=== PATIENT | male | born 1935 | race Hispanic/Latino ===

== ENCOUNTER 2019-05-24 18:32 | Emergency (ER) | payer OTHER, MEDICARE ==
[~2019-05-24 18:32] MED LIST: ASPI-555 PO; DILT360T12 PO; LISI-613 PO; PRAV20TA4 PO
== END 2019-05-24 20:15 | disposition home or self-care (01) ==
LOC: EDH 18:32
DX: N48.1 Balanitis (principal); I10 Essential (primary) hypertension
CPT/HCPCS: 99282

== ENCOUNTER → 2019-12-17 | Outpatient (CLI) | payer OTHER, MEDICARE | END | disposition home or self-care (01) | LOC: SHCH 13:45 | PROVIDERS: ATTEND Internal Medicine Cardiovascular Disease | DX: R07.9 Chest pain, unspecified (principal) | CPT/HCPCS: 93306 ==

== ENCOUNTER → 2019-12-25 | Outpatient (CLI) | payer OTHER, MEDICARE ==
[~2019-12-25] MED LIST changes: +REGADENOSON 0.4 MG/5 ML PF SYG IVP SCH
== END | disposition home or self-care (01) ==
LOC: SHCH 08:28
PROVIDERS: ATTEND Internal Medicine Cardiovascular Disease
DX: R07.9 Chest pain, unspecified (principal)
CPT/HCPCS: 78452; 93017; 96374; A9500 ×2; J2785

== ENCOUNTER 2020-03-06 20:43 | Observation (INO) | payer OTHER, MEDICARE ==
[~2020-03-06] VITALS: Ht 165.1 cm; Wt 67.8 kg
[~2020-03-06 20:43] MED LIST changes: -ASPI-555 PO; +ASPI-556 PO; -REGADENOSON 0.4 MG/5 ML PF SYG IVP SCH
[2020-03-06] MEDS ORDERED: ASPIRIN 325 MG TABLET ONE (20:59)
[2020-03-06] MEDS ORDERED: NITROGLYCERIN 1GM/1 INCH PACKET TD ONE (20:59)
[2020-03-06 21:06] LABS: BASOPHILS % (AUTO) 0.7 % (0.0-5.0); EOSINOPHILS % (AUTO) 4.4 % (0.0-8.0); HEMATOCRIT 33.1 % (42-54); LYMPHOCYTES % (AUTO) 42.9 % (21.0-51.0); MEAN CORPUSCULAR HEMOGLOBIN 32.3 pg (27.0-33.0); MEAN CORPUSCULAR HGB CONC 34.1 g/dL (32.0-36.0); MEAN CORPUSCULAR VOLUME 94.6 fL (79-99); MONOCYTES % (AUTO) 13.1 % (3.0-13.0); NEUTROPHILS % (AUTO) 38.9 % (40.0-77.0); PLATELET COUNT (AUTO) 139 K/uL (130-400); RED CELL DISTRIBUTION WIDTH 13.1 % (11.0-15.5); WHITE BLOOD COUNT (AUTO) 4.4 K/uL (4.8-10.8)
[2020-03-06 21:27] LABS: INR 0.98 (0.85-1.15); PARTIAL THROMBOPLASTIN TIME 26.1 SEC (26.3-35.5); PROTHROMBIN TIME 10.6 SEC (9.6-11.6)
[2020-03-06 21:33] LABS: CREATININE 1.1 mg/dL (0.5-1.5); POTASSIUM 3.6 mmol/L (3.5-5.1)
[2020-03-06 21:37] LABS: ALBUMIN 3.9 g/dL (3.5-5.0); BILIRUBIN,TOTAL 0.3 mg/dL (0.2-1.0); TOTAL PROTEIN, SERUM 7.6 g/dL (6.0-8.3)
[2020-03-07] VITALS (7 sets, daily range): BP systolic 139–188; BP diastolic 52–77
[2020-03-07] MEDS ORDERED: HYDRALAZINE HCL 20 MG/ML VIAL ONE (01:23)
[2020-03-07] MEDS ORDERED: HYDRALAZINE HCL 20 MG/ML VIAL IV PRN (01:30)
[2020-03-07] MEDS ORDERED: ACETAMINOPHEN 325 MG TAB PO PRN (01:30)
[2020-03-07] MEDS ORDERED: MORPHINE SULFATE 2 MG/ML 1ML SYG IVP PRN (01:30)
[2020-03-07] MEDS ORDERED: ENOXAPARIN SODIUM 60 MG/0.6 ML SQ SCH (02:00)
[2020-03-07] MEDS ORDERED: ENOXAPARIN SODIUM 60 MG/0.6 ML SQ ONE (02:07)
[2020-03-07] MEDS ORDERED: FAMOTIDINE 20MG TAB 20 MG TAB ONE (02:07)
[2020-03-07] MEDS ORDERED: LISI40TA4 PO (03:45)
[2020-03-07] MEDS ORDERED: NITR0.4T50 SL (03:45)
[2020-03-07] MEDS ORDERED: ISOS30TA6 PO (03:45)
[2020-03-07] MEDS ORDERED: MECL-183 PO (03:45)
[2020-03-07] MEDS ORDERED: NITROGLYCERIN 1GM/1 INCH PACKET TD SCH ×2 (06:00→06:30)
[2020-03-07 06:08] LABS: APPEARANCE,URINE Clear (CLEAR); BILIRUBIN,URINE Negative (NEGATIVE); COLOR,URINE Yellow (YELLOW); GLUCOSE, URINE (UA) Negative (NEGATIVE); KETONES,URINE Negative (NEGATIVE); LEUKOCYTE ESTERASE ,URINE Negative (NEGATIVE); NITRATE,URINE Negative (NEGATIVE); OCCULT BLOOD,URINE Negative (NEGATIVE); PH,URINE 6.5 (5.0-8.0); PROTEIN,URINE Negative (NEGATIVE); UROBILINOGEN,URINE 0.2 mg/dL (0.2-1.0)
[2020-03-07 06:52] LABS: BASOPHILS % (AUTO) 0.6 % (0.0-5.0); EOSINOPHILS % (AUTO) 3.4 % (0.0-8.0); HEMATOCRIT 31.3 % (42-54); LYMPHOCYTES % (AUTO) 27.3 % (21.0-51.0); MEAN CORPUSCULAR HEMOGLOBIN 32.4 pg (27.0-33.0); MEAN CORPUSCULAR HGB CONC 34.2 g/dL (32.0-36.0); MEAN CORPUSCULAR VOLUME 94.8 fL (79-99); MONOCYTES % (AUTO) 10.2 % (3.0-13.0); NEUTROPHILS % (AUTO) 58.3 % (40.0-77.0); PLATELET COUNT (AUTO) 124 K/uL (130-400); RED CELL DISTRIBUTION WIDTH 12.9 % (11.0-15.5)
[2020-03-07 08:53] LABS: CREATININE 0.9 mg/dL (0.5-1.5)
[2020-03-07] MEDS ORDERED: ISOSORBIDE MONO 30MG TAB SR PO SCH ×2 (09:00→13:00)
[2020-03-07] MEDS: ASPIRIN 81 MG EC TAB PO SCH (09:37)
[2020-03-07] MEDS: FAMOTIDINE 20MG TAB 20 MG TAB PO SCH (09:37)
[2020-03-07] MEDS: METOPROLOL TARTRATE 25 MG TAB PO SCH ×2 (09:37→20:24)
[2020-03-07] MEDS: ENOXAPARIN SODIUM 60 MG/0.6 ML SQ SCH ×2 (09:38→20:25)
[2020-03-07] MEDS: LISINOPRIL 40 MG TABLET PO SCH (11:43)
[2020-03-07] MEDS ORDERED: CLOPIDOGREL BISULFATE 300 MG TAB PO SCH (13:00)
--- NOTE | 2020-03-07 16:50 | NUR ---
TAMY PLAN VISITED WITH PATIENT. PATIENT ON RA WALKING AROUND. BP 188/70 SENT FOR SECONDARY REVIEW. TRIED TO DO IA WITH PATIENT. APPEARED TO BE HARD OF HEARING. CM WILL CONTINUE TO FOLLOW. Addendum: 03/07/20 at 1652 by ELDER OSUNA RN CM Amended: Links added.
[2020-03-07] MEDS ORDERED: ATORVASTATIN CALCIUM 40 MG TABLET PO SCH (21:00)
--- NOTE | 2020-03-07 22:46 | NUR ---
MD Notified Patient trop are elevated & IV that was removed by patient in the right hand is swollen. The MD has been notified (Arlin Lane). She told me that I did not need to notify Cardiology about the troponins if the patient was asymptomatic. A heat pack has been applied to the patient hand and it is elevated as well. An order for a sitter has been placed as well due to his confusion
[2020-03-08 03:50] VITALS: BP 161/77
[2020-03-08] MEDS ORDERED: METO-391 PO (06:21)
[2020-03-08] MEDS ORDERED: Isosorbide Mono 30MG Tab Sr PO (06:21)
[2020-03-08] MEDS ORDERED: ATOR40TA69 PO (06:21)
[2020-03-08] MEDS ORDERED: CLOP75TA14 PO (06:21)
[2020-03-08 08:00] VITALS: BP 170/78
[2020-03-08] MEDS: ASPIRIN 81 MG EC TAB PO SCH (08:38)
[2020-03-08] MEDS: FAMOTIDINE 20MG TAB 20 MG TAB PO SCH (08:39)
[2020-03-08] MEDS ORDERED: ISOSORBIDE MONO 30MG TAB SR PO SCH (09:00)
[2020-03-08] MEDS ORDERED: ENOXAPARIN SODIUM 40 MG/0.4 ML SYRINGE SQ SCH (09:00)
[2020-03-08] MEDS ORDERED: METOPROLOL SUCCINATE 50 MG TAB.SR.24H PO SCH (09:00)
[2020-03-08] MEDS ORDERED: CLOPIDOGREL BISULFATE 75 MG TAB PO SCH (09:00)
[2020-03-08 12:00] VITALS: BP 147/68
[2020-03-08] MEDS: LISINOPRIL 40 MG TABLET PO SCH (12:00)
--- NOTE | 2020-03-08 12:54 | NUR ---
DC PLAN VISITED WITH PATIENT. SEEMED TO BE A LITTLE CONFUSED YESTERDAY. TODAY ON 1:1. CALLED SPOUSE NO ANSWER. CALLED DAUGHTER HARJEET MANCUSO. SAID PATIENT LIVES WITH SPOUSE. HARD OF HEARING DOES NOT WEAR HIS HEARING AIDS. SPEAKS FIL[place] ONLY AND HAS ALZEHEIMERS. PROVIDER 17 HOURS. READY TO SPECIAL SERVICE OFFICER DAD ONCE RDY. Addendum: 03/08/20 at 1301 by ELDER OSUNA RN CM Amended: Links added.
--- NOTE | 2020-03-08 15:00 | NUR ---
PT DAUGHTER HARJEET GIVEN INSTRUCTIONS ON NEW PRESCRIPTIONS, AND SIGNS AND SYMPTOMS TO REPORT.
== END 2020-03-08 15:30 | disposition home or self-care (01) ==
LOC: EDH 20:43 → EDHIP 03-07 00:30 → INTOOBSV 03-07 00:30 → DAHIP 03-07 03:30 → OBSVTOIN 03-07 09:08 → INTOOBSV 03-07 09:08
PROVIDERS: ADMIT Internal Medicine Critical Care Medicine; ATTEND Internal Medicine Critical Care Medicine
DX: I25.110 Atherosclerotic heart disease of native coronary artery with unstable angina pectoris (principal); I24.9 Acute ischemic heart disease, unspecified; I10 Essential (primary) hypertension; I16.0 Hypertensive urgency; E78.5 Hyperlipidemia, unspecified; H91.90 Unspecified hearing loss, unspecified ear; Z79.02 Long term (current) use of antithrombotics/antiplatelets; Z79.82 Long term (current) use of aspirin; Z79.899 Other long term (current) drug therapy; Z85.46 Personal history of malignant neoplasm of prostate
CPT/HCPCS: 36415 ×2; 71045; 80048; 80053; 81003; 82550; 83880; 84484 ×4; 85025 ×2; 85610; 85730; 93005 ×2; 96372 ×2; 99285; G0378 ×25; J0360 ×2; J1650 ×4

== ENCOUNTER 2020-04-06 06:17 | Inpatient (IN) | payer OTHER, MEDICARE ==
[2020-04-05 15:43] LABS: BASOPHILS % (AUTO) 0.6 % (0.0-5.0); EOSINOPHILS % (AUTO) 5.5 % (0.0-8.0); HEMATOCRIT 30.7 % (42-54); LYMPHOCYTES % (AUTO) 35.2 % (21.0-51.0); MEAN CORPUSCULAR HEMOGLOBIN 32.3 pg (27.0-33.0); MEAN CORPUSCULAR HGB CONC 32.9 g/dL (32.0-36.0); MEAN CORPUSCULAR VOLUME 98.1 fL (79-99); MONOCYTES % (AUTO) 11.4 % (3.0-13.0); NEUTROPHILS % (AUTO) 47.1 % (40.0-77.0); PLATELET COUNT (AUTO) 139 K/uL (130-400); RED BLOOD CELL COUNT(AUTO) 3.13 MIL/uL (4.50-6.20); RED CELL DISTRIBUTION WIDTH 13.4 % (11.0-15.5); WHITE BLOOD COUNT (AUTO) 4.7 K/uL (4.8-10.8)
[2020-04-05 15:53] VITALS: BP 190/64
[2020-04-05 15:53] LABS: POTASSIUM 4.5 mmol/L (3.5-5.1)
[2020-04-05 16:06] LABS: INR 0.99 (0.85-1.15); PARTIAL THROMBOPLASTIN TIME 25.6 SEC (26.3-35.5); PROTHROMBIN TIME 10.7 SEC (9.6-11.6)
--- NOTE | 2020-04-05 16:24 | NUR ---
Abnormal CBC Spoke to RAS Nicole/Dr. Peter, and made him aware of CBC results. Order received to repeat CBC in AM. Chart noted.
[2020-04-05 16:39] LABS: APPEARANCE,URINE Clear (CLEAR); BILIRUBIN,URINE Negative (NEGATIVE); COLOR,URINE Yellow (YELLOW); GLUCOSE, URINE (UA) Negative (NEGATIVE); KETONES,URINE Negative (NEGATIVE); LEUKOCYTE ESTERASE ,URINE Negative (NEGATIVE); NITRATE,URINE Negative (NEGATIVE); OCCULT BLOOD,URINE Negative (NEGATIVE); PROTEIN,URINE Negative (NEGATIVE); UROBILINOGEN,URINE 0.2 mg/dL (0.2-1.0)
[2020-04-06] VITALS (22 sets, daily range): BP systolic 105–198; BP diastolic 55–109
[~2020-04-06] VITALS: Ht 167.6 cm; Wt 71.5 kg
[~2020-04-06 06:17] MED LIST changes: +ATOR40TA69 PO; -DILT360T12 PO; +Isosorbide Mono 30MG Tab Sr PO; -LISI-613 PO; +LISI40TA4 PO; +METO-391 PO; +NITR0.4T50 SL; -PRAV20TA4 PO
[2020-04-06] MEDS ORDERED: SODIUM CHLORIDE 0.9% 1000ML 1,000 ML IV ONE (06:20)
--- NOTE | 2020-04-06 06:25 | NUR ---
preop pt arrived via w/c. daughter at side. pt in no distress at this time. pt and family oriented to call light and room.
[2020-04-06 06:33] LABS: BASOPHILS % (AUTO) 0.4 % (0.0-5.0); EOSINOPHILS % (AUTO) 5.9 % (0.0-8.0); HEMATOCRIT 30.7 % (42-54); LYMPHOCYTES % (AUTO) 35.8 % (21.0-51.0); MEAN CORPUSCULAR HEMOGLOBIN 32.3 pg (27.0-33.0); MEAN CORPUSCULAR HGB CONC 33.2 g/dL (32.0-36.0); MEAN CORPUSCULAR VOLUME 97.2 fL (79-99); MONOCYTES % (AUTO) 10.9 % (3.0-13.0); NEUTROPHILS % (AUTO) 46.8 % (40.0-77.0); PLATELET COUNT (AUTO) 130 K/uL (130-400); RED BLOOD CELL COUNT(AUTO) 3.16 MIL/uL (4.50-6.20); RED CELL DISTRIBUTION WIDTH 13.2 % (11.0-15.5); WHITE BLOOD COUNT (AUTO) 4.6 K/uL (4.8-10.8)
[2020-04-06] MEDS ORDERED: IOHEXOL-350 50ML VIAL IV ONE (07:20)
[2020-04-06] MEDS ORDERED: IOHEXOL 350 MG/ML 100ML INFUS..BTL IV ONE (07:20)
[2020-04-06] MEDS ORDERED: HEPARIN SODIUM 1000UNIT/ML 10ML VIAL ONE ×2 (07:20→11:02)
[2020-04-06] MEDS ORDERED: LIDOCAINE HCL 2% 20ML ONE (07:20)
--- NOTE | 2020-04-06 07:25 | NUR ---
report called dr myers and reported cbc. no new orders received
--- NOTE | 2020-04-06 07:52 | NUR ---
cath pt taken to cardiac catheterization technician via bed in no distress.
[2020-04-06] MEDS ORDERED: PRAV20TA4 PO (08:02)
[2020-04-06] MEDS ORDERED: SIME80TA12 PO (08:02)
[2020-04-06] MEDS ORDERED: DONE5TAB33 PO (08:02)
[2020-04-06] MEDS ORDERED: CARV3.12 PO (08:02)
[2020-04-06] MEDS ORDERED: MEMA5TAB42 PO (08:02)
[2020-04-06] MEDS ORDERED: SUCR1TAB2 PO (08:02)
[2020-04-06] MEDS ORDERED: MIDAZOLAM HCL 1 MG/ML 2ML VIAL ONE ×2 (08:36→11:03)
[2020-04-06] MEDS ORDERED: MEPERIDINE-PF 25 MG/ML SYG ONE (08:36)
[2020-04-06] MEDS ORDERED: HEPARIN 25000 UNITS/250 ML D5W 250 ML IV ONE (08:58)
--- NOTE | 2020-04-06 09:40 | NUR ---
PT WAS ADMITTED TO ROOM 1D IN DAY PATIENT ICU AREA. PT IS A 83 Y O MALE POST CATH. PT HAS IMPELLA TO LEFT GROIN IN PLACE AND PT IS BEING PREPARED TO HAVE SURGERY CONSULT AND WILL BE GOING TO SURGERY IF DAUGHTER AND FAMILY MEMBERS DECIDE TO PROCEED WITH SURGERY RECOMMENDED PER DR. BASURTO.
[2020-04-06] MEDS ORDERED: EPINEPHRINE 10 MG in SODIUM CHLORIDE 0.9% 240 ML IV PRN ×2 (10:00→14:15)
[2020-04-06] MEDS ORDERED: AMINOCAPROIC ACID 15,000 MG in SODIUM CHLORIDE 0.9% 500ML 420 ML IV PRN (10:00)
[2020-04-06] MEDS ORDERED: NOREPINEPHRINE BITARTRATE 8 MG in DEXTROSE 5%-WATER 250 ML IV PRN ×2 (10:00→14:15)
[2020-04-06] MEDS ORDERED: NITROGLYCERIN 1GM/1 INCH PACKET TD ONE (10:02)
[2020-04-06] MEDS ORDERED: NOREPINEPHRINE BITARTRATE 8 MG in SODIUM CHLORIDE 0.9% 250 ML IV PRN (10:15)
[2020-04-06 10:28] LABS: HEMATOCRIT 27.5 % (42-54); MEAN CORPUSCULAR HEMOGLOBIN 32.9 pg (27.0-33.0); MEAN CORPUSCULAR HGB CONC 34.2 g/dL (32.0-36.0); MEAN CORPUSCULAR VOLUME 96.2 fL (79-99); RED BLOOD CELL COUNT(AUTO) 2.86 MIL/uL (4.50-6.20); RED CELL DISTRIBUTION WIDTH 13.2 % (11.0-15.5); WHITE BLOOD COUNT (AUTO) 3.9 K/uL (4.8-10.8)
[2020-04-06 10:34] LABS: ABG BASE EXCESS -3.3 mmol/L (-2.0-3.0); ABG HCO3 19.8 mmol/L (21.0-28.0); ABG OXYGEN SATURATION 96.1 % (95.0-99.0); ABG PCO2 31 mmHg (35-48)
[2020-04-06 10:37] LABS: HEMOGLOBIN A1C 6.5 % (4.0-6.0); POTASSIUM 4.1 mmol/L (3.5-5.1)
[2020-04-06 10:41] LABS: ALBUMIN 3.3 g/dL (3.5-5.0); BILIRUBIN,TOTAL 0.4 mg/dL (0.2-1.0); TOTAL PROTEIN, SERUM 6.3 g/dL (6.0-8.3)
[2020-04-06] MEDS ORDERED: SODIUM BICARB 50MEQ 50ML VIAL ONE ×3 (10:41→14:39)
[2020-04-06 10:47] LABS: INR 1.12 (0.85-1.15)
[2020-04-06] MEDS ORDERED: LIDOCAINE PF 2% 5ML ABBOJECT ONE (11:02)
[2020-04-06] MEDS ORDERED: PROTAMINE SULFATE 10 MG/ML 25ML VIAL IV ONE (11:02)
[2020-04-06] MEDS ORDERED: AMINOCAPROIC ACID 250 MG/ML 20 ML VIAL IV ONE (11:02)
[2020-04-06] MEDS ORDERED: ESMOLOL HCL 10 MG/ML 10 ML VIAL ONE (11:02)
[2020-04-06] MEDS ORDERED: NOREPINEPHRINE BITARTRATE 1 MG/1 ML ML IV ONE (11:02)
[2020-04-06] MEDS ORDERED: EPINEPHRINE 1 MG/ML AMPULE ONE (11:02)
[2020-04-06] MEDS ORDERED: FENTANYL CITRATE PF 50 MCG/1 ML 20ML VIAL IJ ONE (11:03)
[2020-04-06] MEDS ORDERED: PROPOFOL 10 MG/ML 20ML VIAL IV ONE (11:03)
[2020-04-06] MEDS ORDERED: KETAMINE 50MG/ML SYRINGE 50 MG/ML DISP.SYRIN IV ONE (11:04)
[2020-04-06] MEDS ORDERED: ROCURONIUM 10MG/1ML SYR 10 MG/ML ML ONE (11:04)
--- NOTE | 2020-04-06 11:20 | NUR ---
PT WAS TAKEN TO SURGERY AFTER DAUGHTER AND SON DECIDED FOR PATIENT TO HAVE SURGERY DR. VELEZ HERE AND SPOKE TO DAUGHTER CONCERNING THE SURGERY PROCEDURE, DAUGHTER VERBALIZED UNDERSTANDING AND WAS ABLE TO ASK QUESTIONS AND DR. VELEZ ANSWERED HER QUESTIONS.
[2020-04-06] MEDS ORDERED: CEFAZOLIN SODIUM 1 GM VIAL ONE ×3 (11:29)
[2020-04-06] MEDS ORDERED: PAPAVERINE HCL 30 MG/ML 2ML VIAL ONE (11:29)
[2020-04-06] MEDS ORDERED: MAGNESIUM SULFATE 1 GM/2 ML VIAL ONE (12:00)
[2020-04-06] MEDS ORDERED: NITROGLYCERIN 50 MG/D5% WATER 1 BOT ONE (12:05)
[2020-04-06 12:07] LABS: ABG BASE EXCESS -0.2 mmol/L (-2.0-3.0); ABG HCO3 22.5 mmol/L (21.0-28.0); ABG OXYGEN SATURATION 98.6 % (95.0-99.0); ABG PCO2 30 mmHg (35-48)
[2020-04-06] MEDS ORDERED: NICARDIPINE IN NACL, ISO-OSM 200 ML IV PRN (12:15)
[2020-04-06] MEDS ORDERED: NICARDIPINE 100 MG/100ML IV SCH ×2 (12:45)
[2020-04-06 12:51] LABS: PARTIAL THROMBOPLASTIN TIME > 120.0 SEC (26.3-35.5)
[2020-04-06 13:28] LABS: ABG BASE EXCESS 0.4 mmol/L (-2.0-3.0); ABG HCO3 24.1 mmol/L (21.0-28.0); ABG OXYGEN SATURATION 98.2 % (95.0-99.0); ABG PCO2 35 mmHg (35-48)
[2020-04-06] MEDS ORDERED: NOREPINEPHRINE 4MG/NS 250ML 250 ML IV PRN (13:45)
[2020-04-06] MEDS ORDERED: EPINEPHRINE 10 MG in DEXTROSE 5%-WATER 250 ML IV PRN (13:45)
[2020-04-06] MEDS ORDERED: INSULIN REGULAR, HUMAN 3ML 100 UNIT in SODIUM CHLORIDE 0.9% 99 ML IV SCH ×2 (13:45)
[2020-04-06] MEDS ORDERED: AMINOCAPROIC ACID 15,000 MG in SODIUM CHLORIDE 0.9% 250 ML IV SCH (13:45)
[2020-04-06] MEDS ORDERED: MAGNESIUM 2GM PREMIX 50ML 50 ML IV PRN (13:45)
[2020-04-06] MEDS ORDERED: ALBUMIN (HUMAN) 5% 250 ML IV PRN (13:45)
[2020-04-06] MEDS ORDERED: SODIUM CHLORIDE 0.9% 10 ML VIAL IVP PRN (13:45)
[2020-04-06] MEDS ORDERED: ACETAMINOPHEN 650 MG SUPPOSITORY RC PRN (13:45)
[2020-04-06] MEDS ORDERED: MORPHINE SULFATE 2 MG/ML 1ML SYG IV PRN (13:45)
[2020-04-06] MEDS ORDERED: SODIUM CHLORIDE 0.9% 250 ML IV PRN (13:45)
[2020-04-06] MEDS ORDERED: MORPHINE SULFATE 4 MG/1ML SYG IV PRN (13:45)
[2020-04-06] MEDS ORDERED: TRAMADOL HCL 50 MG TABLET PO PRN ×2 (13:45)
[2020-04-06] MEDS ORDERED: NITROGLYCERIN 50 MG/D5% WATER 250 BOT IV SCH (13:45)
[2020-04-06] MEDS ORDERED: ONDANSETRON HCL 4 MG/2 ML VIAL IV PRN (13:45)
[2020-04-06] MEDS ORDERED: GLUCAGON 1MG KIT 1 MG ML IM PRN (13:45)
[2020-04-06] MEDS ORDERED: DEXTROSE 50%-WATER 50 ML DISP.SYRIN IV PRN (13:45)
[2020-04-06] MEDS ORDERED: SODIUM CHLORIDE 0.9% 1000ML 1,000 ML IV SCH (13:45)
[2020-04-06] MEDS ORDERED: POTASSIUM PHOS 15 mMOL+NS250ML 250 ML IV PRN (13:45)
[2020-04-06 14:33] LABS: ABG BASE EXCESS -7.2 mmol/L (-2.0-3.0); ABG HCO3 18.9 mmol/L (21.0-28.0); ABG OXYGEN SATURATION 98.5 % (95.0-99.0); ABG PCO2 41 mmHg (35-48)
[2020-04-06 14:57] LABS: ABG BASE EXCESS 2.4 mmol/L (-2.0-3.0); ABG HCO3 26.5 mmol/L (21.0-28.0); ABG OXYGEN SATURATION 98.2 % (95.0-99.0); ABG PCO2 39 mmHg (35-48)
[2020-04-06] MEDS ORDERED: FENTANYL CITRATE PF 50 MCG/1 ML 2ML VIAL ONE ×2 (15:07)
[2020-04-06 15:43] LABS: ABG OXYGEN SATURATION 64.8 % (95.0-99.0); BASE EXCESS,VENOUS BLOOD GAS -2.6 (-2.0-3.0); HCO3,VENOUS BLOOD GAS 23.9 (21.0-28.0); PCO2,VENOUS BLOOD GAS 48 (35-48); PH,VENOUS BLOOD GAS 7.319 (7.350-7.450)
[2020-04-06 16:03] LABS: ABG BASE EXCESS -2.8 mmol/L (-2.0-3.0); ABG HCO3 21.7 mmol/L (21.0-28.0); ABG OXYGEN SATURATION 98.4 % (95.0-99.0); ABG PCO2 37 mmHg (35-48)
[2020-04-06] MEDS ORDERED: HEPARIN SODIUM 1000UNIT/ML 10ML VIAL IV ONE (16:04)
[2020-04-06 16:15] LABS: MEAN CORPUSCULAR HGB CONC 34.8 g/dL (32.0-36.0); MEAN CORPUSCULAR VOLUME 89.1 fL (79-99); RED BLOOD CELL COUNT(AUTO) 3.48 MIL/uL (4.50-6.20); RED CELL DISTRIBUTION WIDTH 16.5 % (11.0-15.5); WHITE BLOOD COUNT (AUTO) 10.8 K/uL (4.8-10.8)
[2020-04-06] MEDS ORDERED: DEXTROSE 5% IJ PRN (16:15)
[2020-04-06] MEDS ORDERED: HEPARIN IJ PRN (16:15)
[2020-04-06] MEDS ORDERED: SODIUM CHLORIDE IV SCH (16:15)
[2020-04-06] MEDS ORDERED: WATER IJ PRN (16:15)
[2020-04-06] MEDS ORDERED: NS IV SCH (16:15)
[2020-04-06 16:28] LABS: INR 1.38 (0.85-1.15); PARTIAL THROMBOPLASTIN TIME 26.1 SEC (26.3-35.5); PROTHROMBIN TIME 14.7 SEC (9.6-11.6)
[2020-04-06 16:32] LABS: MAGNESIUM 1.8 mg/dL (1.80-2.40); PHOSPHORUS 6.2 mg/dL (2.5-4.9)
[2020-04-06] MEDS: PROPOFOL 1000 MG/100 ML 100 ML IV PRN (16:58)
[2020-04-06 17:01] LABS: ABG BASE EXCESS 2.1 mmol/L (-2.0-3.0); ABG OXYGEN SATURATION 97.9 % (95.0-99.0); ABG PCO2 38 mmHg (35-48)
[2020-04-06 17:25] LABS: CREATININE 1.2 mg/dL (0.5-1.5); POTASSIUM 4.1 mmol/L (3.5-5.1)
[2020-04-06] MEDS: POTASSIUM CHLORIDE 20MEQ/100ML 100 ML IV PRN ×2 (17:26→20:33)
--- NOTE | 2020-04-06 17:49 | NUR ---
PT HAD TO BE STARTED ON DIPRIVAN DRIP -HE BEGAN TO WAKE UP AND MARCIAL VENTILATOR. SEDATED FOR COMFORT HE IS NOT GOING TO BE EXTUBATED TONIGHT. SWAN DANNY CATH HAS INCONSISTENT WAVEFORMS AT TIMES ( HIGH/LOW READINGS). CO MONITOR IS GIVING LOW READINGS AND PA PRESSURES COME AND GO. DAMPENED AT TIMES OR WHIPPED. I HAVE CONNECTED ET CO MONITOR AND IT IS GIVING APPROPRIATE CARDIAC OUTPUTS OF 4.5. I WILL FOLLOW ET CARDIAC OUTPUT MONITOR FOR NOW.
--- NOTE | 2020-04-06 18:01 | NUR ---
PT ARRIVES FROM O.R.- CARE ASSUMED FROM SURGICAL STAFF. PT IS INTUBATED. EPINEPHRINE DRIP AT 0.1MCG/KG/MIN... SBP 190 ,HR 80. SEDATED. IMPELLA DEVICE ON P-6 SETTING. NO HEMATOMA OR BLEEDING NOTED TO LEFT GROIN SHEATH/IMPELLA SITE. STRONG PEDAL PULSES Addendum: 04/06/20 at 1822 by NIVIA ANDREWS RN RN CORRECT TIME FOR THIS NOTE IS 3172
[2020-04-06 18:24] LABS: ABG HCO3 22.9 mmol/L (21.0-28.0); ABG OXYGEN SATURATION 97.3 % (95.0-99.0); ABG PCO2 35 mmHg (35-48)
[2020-04-06] MEDS: CEFAZOLIN SODIUM 1 GM VIAL IV SCH (19:21)
[2020-04-06 19:47] LABS: ABG BASE EXCESS -1.3 mmol/L (-2.0-3.0); ABG HCO3 22.3 mmol/L (21.0-28.0); ABG OXYGEN SATURATION 97.1 % (95.0-99.0); ABG PCO2 34 mmHg (35-48)
[2020-04-06] MEDS: SODIUM BICARB 50MEQ 50ML VIAL IV PRN (19:51)
--- NOTE | 2020-04-06 20:10 | NUR ---
DR VELEZ ARRIVES AT BEDSIDE- HE ADJUSTED POSITION OF IMPELLA CATH TO 100CM / ALSO ADJUSTED SWAN POSITION TO 50CM. UPDATED ON PT STATUS . INFORMED OF COLD LEFT FOOT WITH ABSENT DOPPLER PULSES. HE WILL CHANGE CONCENTRATION OF HEPARIN TO IMPELLA PURGE SOLUTION
[2020-04-06] MEDS ORDERED: PHARMACY COMMUNICATION MISC SCH (20:15)
[2020-04-06 20:30] LABS: ABG BASE EXCESS 3.9 mmol/L (-2.0-3.0); ABG HCO3 27.3 mmol/L (21.0-28.0); ABG OXYGEN SATURATION 97.7 % (95.0-99.0); ABG PCO2 37 mmHg (35-48)
[2020-04-06] MEDS ORDERED: HEPARIN SODIUM 5000 UNIT/ML 25,000 UNIT in DEXTROSE 5%-WATER 495 ML IJ PRN (20:30)
--- NOTE | 2020-04-06 20:46 | NUR ---
HAND OFF GIVEN TO VILMA DAUGHERTY AND SHANKAR DAUGHERTY
[2020-04-06] MEDS: ATORVASTATIN CALCIUM 20 MG TABLET PO SCH (21:00)
[2020-04-06] MEDS: CALCIUM GLUCONATE 1 GM in SODIUM CHLORIDE 0.9% 50 ML IV PRN (21:14)
[2020-04-06] MEDS: FAMOTIDINE/PF 20 MG/2 ML VIAL IV SCH (21:32)
[2020-04-06] MEDS ORDERED: ALBUMIN (HUMAN) 5% 250 ML IV ONE (21:41)
[2020-04-06 21:49] LABS: ABG BASE EXCESS 3.3 mmol/L (-2.0-3.0); ABG HCO3 26.4 mmol/L (21.0-28.0); ABG OXYGEN SATURATION 97.4 % (95.0-99.0); ABG PCO2 35 mmHg (35-48)
[2020-04-06 21:53] LABS: ABG OXYGEN SATURATION 43.3 % (95.0-99.0); BASE EXCESS,VENOUS BLOOD GAS 2.6 (-2.0-3.0); HCO3,VENOUS BLOOD GAS 27.8 (21.0-28.0); PCO2,VENOUS BLOOD GAS 45 (35-48); PH,VENOUS BLOOD GAS 7.408 (7.350-7.450)
--- NOTE | 2020-04-06 22:30 | NUR ---
DR. VELEZ CALLED AND UPDATED IN PT CONDITION. LAST SVO2 AND DECREASED CO/CI ACCORDING TO SWAN/ETT MONITORING. NOTIFIED OF ABG RESULT AND URINE OUTPUT. NEW ORDERS RECEIVED AND NOTED. CONTINUE TO MONITOR PT.
[2020-04-06 23:11] LABS: FIBRINOGEN 189 mg/dL (180-350); INR 1.24 (0.85-1.15); PARTIAL THROMBOPLASTIN TIME 32.4 SEC (26.3-35.5); PROTHROMBIN TIME 13.3 SEC (9.6-11.6)
[2020-04-06] MEDS: ACETAMINOPHEN 325 MG TAB PO PRN (23:12)
[2020-04-06] MEDS: ALBUMIN (HUMAN) 5% 250 ML IV SCH (23:18)
[2020-04-06 23:36] LABS: D-DIMER 1192 ng/mL (0-500)
[2020-04-07] VITALS (30 sets, daily range): BP systolic 33–179; BP diastolic 16–89
[2020-04-07] MEDS: CEFAZOLIN SODIUM 1 GM VIAL IV SCH ×2 (01:51→08:14)
[2020-04-07 02:24] LABS: ABG BASE EXCESS 0.6 mmol/L (-2.0-3.0); ABG HCO3 23.6 mmol/L (21.0-28.0); ABG OXYGEN SATURATION 97.6 % (95.0-99.0); ABG PCO2 32 mmHg (35-48)
[2020-04-07] MEDS: POTASSIUM CHLORIDE 20MEQ/100ML 100 ML IV PRN ×2 (02:27→06:24)
[2020-04-07 03:11] LABS: HEMATOCRIT 25.6 % (42-54); MEAN CORPUSCULAR HEMOGLOBIN 30.9 pg (27.0-33.0); MEAN CORPUSCULAR HGB CONC 34.8 g/dL (32.0-36.0); MEAN CORPUSCULAR VOLUME 88.9 fL (79-99); RED BLOOD CELL COUNT(AUTO) 2.88 MIL/uL (4.50-6.20); RED CELL DISTRIBUTION WIDTH 18.1 % (11.0-15.5)
[2020-04-07 03:35] LABS: INR 1.25 (0.85-1.15); PROTHROMBIN TIME 13.4 SEC (9.6-11.6)
[2020-04-07 03:40] LABS: D-DIMER 1170 ng/mL (0-500)
[2020-04-07 03:41] LABS: PLATELET COUNT (AUTO) 103 K/uL (130-400)
[2020-04-07 03:50] LABS: ALBUMIN 3.3 g/dL (3.5-5.0); BILIRUBIN,TOTAL 0.7 mg/dL (0.2-1.0); CREATININE 1.7 mg/dL (0.5-1.5); MAGNESIUM 2.4 mg/dL (1.80-2.40); PHOSPHORUS 2.5 mg/dL (2.5-4.9); POTASSIUM 3.8 mmol/L (3.5-5.1)
[2020-04-07 03:52] LABS: TROPONIN I 26.71 ng/mL (0.00-0.06)
[2020-04-07 03:55] LABS: PARTIAL THROMBOPLASTIN TIME > 120.0 SEC (26.3-35.5)
[2020-04-07 04:09] LABS: FIBRINOGEN 216 mg/dL (180-350)
[2020-04-07] MEDS: CALCIUM GLUCONATE 1 GM in SODIUM CHLORIDE 0.9% 50 ML IV PRN ×3 (04:32→21:17)
[2020-04-07 04:37] LABS: INR 1.25 (0.85-1.15); PROTHROMBIN TIME 13.4 SEC (9.6-11.6)
[2020-04-07] MEDS: PROPOFOL 1000 MG/100 ML 100 ML IV PRN (05:02)
[2020-04-07 05:21] LABS: PARTIAL THROMBOPLASTIN TIME > 120.0 SEC (26.3-35.5)
[2020-04-07] MEDS ORDERED: PHARMACY COMMUNICATION MISC SCH (05:30)
[2020-04-07] MEDS: ACETAMINOPHEN 325 MG TAB PO PRN (05:40)
[2020-04-07 06:14] LABS: ABG BASE EXCESS 1.6 mmol/L (-2.0-3.0); ABG HCO3 24.5 mmol/L (21.0-28.0); ABG OXYGEN SATURATION 97.1 % (95.0-99.0); ABG PCO2 33 mmHg (35-48)
[2020-04-07 06:17] LABS: ABG OXYGEN SATURATION 46.9 % (95.0-99.0); BASE EXCESS,VENOUS BLOOD GAS 2.4 (-2.0-3.0); HCO3,VENOUS BLOOD GAS 26.6 (21.0-28.0); PCO2,VENOUS BLOOD GAS 40 (35-48); PH,VENOUS BLOOD GAS 7.444 (7.350-7.450)
[2020-04-07] MEDS ORDERED: DEXTROSE 5% IJ PRN (07:00)
[2020-04-07] MEDS ORDERED: HEPARIN SODIUM IJ PRN (07:00)
[2020-04-07] MEDS ORDERED: WATER IJ PRN (07:00)
--- NOTE | 2020-04-07 07:45 | NUR ---
DR. VELEZ HERE AND WAS GIVEN UPDATE. HE WAS ABLE TO ASSESS CHEST XRAY AND LAB WORK AND ORDERS WERE NOTED. IMPELLA DOWN TO P 4. WILL CHECK LABS AND URINE OUTPUT AT [address] VELEZ AND WILL ASSESS PT AND POSSIBLE TAKING PT BACK TO OR TO REMOVE IMPELLA IS THE PLAN.
[2020-04-07] MEDS: FAMOTIDINE/PF 20 MG/2 ML VIAL IV SCH ×2 (08:15→20:18)
[2020-04-07] MEDS: ASPIRIN 325MG EC TAB 325 MG TABLET.DR PO SCH (08:15)
[2020-04-07 09:31] LABS: PLATELET COUNT (AUTO) 89 K/uL (130-400)
[2020-04-07 09:33] LABS: ABG BASE EXCESS -0.2 mmol/L (-2.0-3.0); ABG HCO3 22.6 mmol/L (21.0-28.0); ABG OXYGEN SATURATION 97.3 % (95.0-99.0); ABG PCO2 30 mmHg (35-48)
[2020-04-07] MEDS: SODIUM BICARB 50MEQ 50ML VIAL IV PRN ×3 (09:41→16:55)
[2020-04-07 10:14] LABS: FIBRINOGEN 191 mg/dL (180-350); INR 1.45 (0.85-1.15); PROTHROMBIN TIME 15.4 SEC (9.6-11.6)
[2020-04-07 10:18] LABS: PARTIAL THROMBOPLASTIN TIME > 120.0 SEC (26.3-35.5)
[2020-04-07] MEDS ORDERED: ROCURONIUM 10MG/1ML SYR 10 MG/ML ML ONE (10:36)
[2020-04-07 10:40] LABS: D-DIMER 835 ng/mL (0-500)
--- NOTE | 2020-04-07 10:54 | NUR ---
OFF UNIT PT WENT TO SURGERY AT 1045 TO REMOVE IMPELLA
--- NOTE | 2020-04-07 10:58 | NUR ---
patient is on procedure- removal of Impella per Nursing.Will disregard current Physical Therapy order for now. Awaiting for new referral from MD. Addendum: 04/07/20 at 1100 by DAVE MICHEL, PT PT Amended: Links added.
[2020-04-07 11:09] LABS: ABG BASE EXCESS -0.3 mmol/L (-2.0-3.0); ABG HCO3 22.9 mmol/L (21.0-28.0); ABG OXYGEN SATURATION 97.5 % (95.0-99.0); ABG PCO2 32 mmHg (35-48)
[2020-04-07] MEDS ORDERED: CEFAZOLIN SODIUM 1 GM VIAL ONE (11:11)
[2020-04-07] MEDS ORDERED: NITROGLYCERIN 50 MG/D5% WATER 1 BOT ONE (11:13)
[2020-04-07] MEDS ORDERED: FENTANYL CITRATE PF 50 MCG/1 ML 2ML VIAL ONE (11:23)
[2020-04-07] MEDS ORDERED: GLYCOPYRROLATE 1 MG/5 ML SYRINGE ONE (11:41)
[2020-04-07] MEDS ORDERED: PROPOFOL 10 MG/ML 20ML VIAL IV ONE (11:56)
[2020-04-07 12:35] LABS: ABG HCO3 25.6 mmol/L (21.0-28.0); ABG OXYGEN SATURATION 98.2 % (95.0-99.0); ABG PCO2 32 mmHg (35-48)
[2020-04-07 12:41] LABS: ABG OXYGEN SATURATION 56.1 % (95.0-99.0); BASE EXCESS,VENOUS BLOOD GAS 2.5 (-2.0-3.0); HCO3,VENOUS BLOOD GAS 26.2 (21.0-28.0); PCO2,VENOUS BLOOD GAS 38 (35-48); PH,VENOUS BLOOD GAS 7.458 (7.350-7.450)
[2020-04-07 12:56] LABS: BASOPHILS % (AUTO) 0.1 % (0.0-5.0); EOSINOPHILS % (AUTO) 1.6 % (0.0-8.0); HEMATOCRIT 23.6 % (42-54); LYMPHOCYTES % (AUTO) 10.6 % (21.0-51.0); MEAN CORPUSCULAR HEMOGLOBIN 31.2 pg (27.0-33.0); MEAN CORPUSCULAR HGB CONC 35.2 g/dL (32.0-36.0); MEAN CORPUSCULAR VOLUME 88.7 fL (79-99); MONOCYTES % (AUTO) 13.8 % (3.0-13.0); NEUTROPHILS % (AUTO) 73.5 % (40.0-77.0); PLATELET COUNT (AUTO) 90 K/uL (130-400); RED BLOOD CELL COUNT(AUTO) 2.66 MIL/uL (4.50-6.20); RED CELL DISTRIBUTION WIDTH 18.6 % (11.0-15.5); WHITE BLOOD COUNT (AUTO) 10.3 K/uL (4.8-10.8)
[2020-04-07 13:12] LABS: CREATININE 1.7 mg/dL (0.5-1.5); MAGNESIUM 2.2 mg/dL (1.80-2.40); POTASSIUM 5.2 mmol/L (3.5-5.1)
[2020-04-07 13:26] LABS: INR 1.24 (0.85-1.15); PARTIAL THROMBOPLASTIN TIME 84.7 SEC (26.3-35.5); PROTHROMBIN TIME 13.3 SEC (9.6-11.6)
[2020-04-07 13:53] LABS: ABG OXYGEN SATURATION 95.8 % (95.0-99.0); ABG PCO2 32 mmHg (35-48)
[2020-04-07 15:51] LABS: ABG BASE EXCESS -4.2 mmol/L (-2.0-3.0); ABG HCO3 19.8 mmol/L (21.0-28.0); ABG OXYGEN SATURATION 94.5 % (95.0-99.0); ABG PCO2 32 mmHg (35-48)
[2020-04-07] MEDS: ALBUMIN (HUMAN) 5% 250 ML IV SCH (16:42)
[2020-04-07 18:31] LABS: ABG BASE EXCESS 1.2 mmol/L (-2.0-3.0); ABG HCO3 25.2 mmol/L (21.0-28.0); ABG OXYGEN SATURATION 97.2 % (95.0-99.0); ABG PCO2 37 mmHg (35-48)
[2020-04-07 19:02] LABS: ABG OXYGEN SATURATION 53.8 % (95.0-99.0); BASE EXCESS,VENOUS BLOOD GAS 0.8 (-2.0-3.0); HCO3,VENOUS BLOOD GAS 25.4 (21.0-28.0); PCO2,VENOUS BLOOD GAS 41 (35-48); PH,VENOUS BLOOD GAS 7.415 (7.350-7.450)
[2020-04-07] MEDS: ATORVASTATIN CALCIUM 20 MG TABLET PO SCH (20:11)
[2020-04-07 21:03] LABS: ABG BASE EXCESS 2.9 mmol/L (-2.0-3.0); ABG HCO3 26.2 mmol/L (21.0-28.0); ABG OXYGEN SATURATION 96.3 % (95.0-99.0); ABG PCO2 35 mmHg (35-48)
[2020-04-08] VITALS (24 sets, daily range): BP systolic 121–218; BP diastolic 29–100
--- NOTE | 2020-04-08 | NUR ---
ASSESSMENT PT REMAINS INTUBATED AND SEDATED. ASSESSMENT COMPLETED, SEE FLOW SHEET
[2020-04-08 03:18] LABS: ABG BASE EXCESS 5.4 mmol/L (-2.0-3.0); ABG HCO3 29.1 mmol/L (21.0-28.0); ABG OXYGEN SATURATION 96.8 % (95.0-99.0); ABG PCO2 38 mmHg (35-48)
[2020-04-08] MEDS: CALCIUM GLUCONATE 1 GM in SODIUM CHLORIDE 0.9% 50 ML IV PRN ×5 (03:26→23:31)
--- NOTE | 2020-04-08 03:30 | NUR ---
DR ROSIE VELEZ MADE AWARE CO/CI 3.3/1.8. SEE ORDERS.
[2020-04-08 03:44] LABS: MEAN CORPUSCULAR HEMOGLOBIN 30.2 pg (27.0-33.0); MEAN CORPUSCULAR HGB CONC 33.3 g/dL (32.0-36.0); MEAN CORPUSCULAR VOLUME 90.7 fL (79-99); RED BLOOD CELL COUNT(AUTO) 2.15 MIL/uL (4.50-6.20); RED CELL DISTRIBUTION WIDTH 19.1 % (11.0-15.5); WHITE BLOOD COUNT (AUTO) 6.7 K/uL (4.8-10.8)
[2020-04-08 03:55] LABS: HEMATOCRIT 19.5 % (42-54)
[2020-04-08 04:08] LABS: ALBUMIN 2.8 g/dL (3.5-5.0); BILIRUBIN,TOTAL 0.7 mg/dL (0.2-1.0); CREATININE 2.1 mg/dL (0.5-1.5); POTASSIUM 4.2 mmol/L (3.5-5.1); TOTAL PROTEIN, SERUM 4.7 g/dL (6.0-8.3)
[2020-04-08 05:05] LABS: MAGNESIUM 2.2 mg/dL (1.80-2.40)
[2020-04-08 05:06] LABS: INR 1.4 (0.85-1.15); PARTIAL THROMBOPLASTIN TIME 33.1 SEC (26.3-35.5); PROTHROMBIN TIME 14.9 SEC (9.6-11.6)
[2020-04-08 05:14] LABS: ABG BASE EXCESS 3.4 mmol/L (-2.0-3.0); ABG HCO3 27.4 mmol/L (21.0-28.0); ABG OXYGEN SATURATION 96.6 % (95.0-99.0); ABG PCO2 39 mmHg (35-48)
--- NOTE | 2020-04-08 05:45 | NUR ---
DR ROSIE VELEZ MADE AWARE OF HGB/HCT/PLT,MG, KCL, ION CA. SEE ORDERS
--- NOTE | 2020-04-08 07:00 | NUR ---
BEDSIDE REPORT BEDSIDE REPORT GIVEN TO BRIAN RN, ORDERS REVIEWED AND CARE ENDORSED.
[2020-04-08 07:05] LABS: ABG BASE EXCESS 2.7 mmol/L (-2.0-3.0); ABG HCO3 26.3 mmol/L (21.0-28.0); ABG OXYGEN SATURATION 96.6 % (95.0-99.0); ABG PCO2 36 mmHg (35-48)
[2020-04-08] MEDS: FAMOTIDINE/PF 20 MG/2 ML VIAL IV SCH ×2 (08:37→19:59)
[2020-04-08] MEDS: ASPIRIN 325MG EC TAB 325 MG TABLET.DR PO SCH (09:00)
[2020-04-08] MEDS ORDERED: CALCIUM GLUCONATE 1 GM in SODIUM CHLORIDE 0.9% 100 ML IV SCH (09:15)
[2020-04-08 09:36] LABS: ABG BASE EXCESS 2.4 mmol/L (-2.0-3.0); ABG HCO3 26.3 mmol/L (21.0-28.0); ABG PCO2 38 mmHg (35-48)
[2020-04-08] MEDS: ASPIRIN 325 MG TABLET PO SCH (09:38)
[2020-04-08] MEDS: PROPOFOL 1000 MG/100 ML 100 ML IV PRN (09:40)
--- NOTE | 2020-04-08 10:00 | NUR ---
DR. VIVIENNE VELEZ AT BEDSIDE. LOW URINARY OUTPUT WAS ADDRESSED AND LASIX AT 5ML/HR WAS STARTED. EKG, UA, AND BANDAGE CHANGE ORDERED. PLANS FOR THE DAY IS TO POSSIBLY EXTUBATE PT AFTER UNIT OF BLOOD IS DONE.
[2020-04-08] MEDS ORDERED: FUROSEMIDE 10 MG/ML 4ML VIAL IV SCH (10:15)
[2020-04-08] MEDS: FUROSEMIDE 100 MG in SODIUM CHLORIDE 0.9% 100 ML IV SCH (10:37)
--- NOTE | 2020-04-08 11:16 | NUR ---
DC PLAN PATIENT LIVES WITH SPOUSE AND SON. PATIENT HAS NO DME. PATENT HAS A PROVIDER LESS THAN 20 HRS. THEY WOULD LIKE A HOSPITAL BED AND MORE PROVIDER HOURS. S/P CABG WILL SEE HOW HE DOES WITH PT. Addendum: 04/08/20 at 1121 by ELDER OSUNA RN CM Amended: Links added.
[2020-04-08 11:17] LABS: APPEARANCE,URINE Turbid (CLEAR); BILIRUBIN,URINE Negative (NEGATIVE); COLOR,URINE Yellow (YELLOW); GLUCOSE, URINE (UA) Negative (NEGATIVE); KETONES,URINE Negative (NEGATIVE); LEUKOCYTE ESTERASE ,URINE Negative (NEGATIVE); NITRATE,URINE Negative (NEGATIVE); OCCULT BLOOD,URINE Large (NEGATIVE); PH,URINE 7.5 (5.0-8.0); PROTEIN,URINE POS 1+ mg/dL (NEGATIVE); UROBILINOGEN,URINE 0.2 mg/dL (0.2-1.0)
--- NOTE | 2020-04-08 12:00 | NUR ---
SEDATION TURNED OFF PROPOFOL TURNED OFF AT 1200
[2020-04-08 12:07] LABS: ABG BASE EXCESS 1.6 mmol/L (-2.0-3.0); ABG HCO3 25.2 mmol/L (21.0-28.0); ABG OXYGEN SATURATION 97.6 % (95.0-99.0); ABG PCO2 35 mmHg (35-48)
[2020-04-08 12:11] LABS: BACTERIA,URINE Moderate /HPF (None Seen)
[2020-04-08 12:12] LABS: HEMATOCRIT 25.9 % (42-54); MEAN CORPUSCULAR HEMOGLOBIN 30.3 pg (27.0-33.0); MEAN CORPUSCULAR HGB CONC 33.2 g/dL (32.0-36.0); MEAN CORPUSCULAR VOLUME 91.2 fL (79-99); PLATELET COUNT (AUTO) 54 K/uL (130-400); RED BLOOD CELL COUNT(AUTO) 2.84 MIL/uL (4.50-6.20); RED CELL DISTRIBUTION WIDTH 17.9 % (11.0-15.5); WHITE BLOOD COUNT (AUTO) 8.5 K/uL (4.8-10.8)
[2020-04-08] MEDS: ACETAMINOPHEN 325 MG TAB PO PRN ×2 (12:12→18:05)
[2020-04-08 12:13] LABS: AMORPHOUS SEDIMENT,UR Few /LPF (None Seen); SQUAMOUS EPITHELIAL CELL,UR 0-2 /HPF (0-2); WBC,URINE 0-1 /HPF (0-1)
--- NOTE | 2020-04-08 15:00 | NUR ---
VENTILATOR WEANING ATTEMPT TO WEAN PT OFF VENTILATOR. PT UNABLE TO TOLERATE WEANING. VERY LETHARGIC AND UNABLE TO FOLLOW COMMANDS.
--- NOTE | 2020-04-08 15:00 | NUR ---
WEAKNESS TO LEFT SIDE DR. VELEZ WAS CALLED AND INFORMED OF PT'S STATUS. PT HAS WEAKNESS TO LEFT UPPER EXTREMITY AND NO MOVEMENT TO LEFT LOWER EXTREMITY. PT HAS BEEN OFF OF SEDATION SINCE 1200 AND IS NOT FOLLOWING COMMANDS OR ABLE TO KEEP EYES OPEN. DR. VELEZ WANTS TO KEEP PT INTUBATED UNTIL HE IS ABLE TO PROPERLY PROTECT AIRWAY.
[2020-04-08 15:07] LABS: ABG BASE EXCESS 1.8 mmol/L (-2.0-3.0); ABG HCO3 25.9 mmol/L (21.0-28.0); ABG OXYGEN SATURATION 97.4 % (95.0-99.0); ABG PCO2 38 mmHg (35-48)
[2020-04-08 15:10] LABS: ABG BASE EXCESS 0.9 mmol/L (-2.0-3.0); ABG HCO3 24.7 mmol/L (21.0-28.0); ABG OXYGEN SATURATION 97.5 % (95.0-99.0); ABG PCO2 36 mmHg (35-48)
--- NOTE | 2020-04-08 15:50 | NUR ---
CT HEAD PT TAKEN FOR CT OF HEAD DUE TO LEFT SIDE WEAKNESS.
--- NOTE | 2020-04-08 17:00 | NUR ---
FAMILY UPDATED DAUGHTER, STANLEY RUTH HAS BEEN CALLING FREQUENTLY AND ASKING FOR FATHER'S STATUS. SHE HAS BEEN INFORMED OF THE REASONS WHY HE IS STILL INTUBATED AND HAS BEEN KEPT UPDATED WITH HIS CONDITION.
[2020-04-08] MEDS: NITROGLYCERIN 1GM/1 INCH PACKET TD SCH ×2 (18:09→23:26)
--- NOTE | 2020-04-08 19:20 | NUR ---
BEDSIDE REPORT REPORT RECEIVED FROM BRIAN DAUGHERTY
[2020-04-08] MEDS: ATORVASTATIN CALCIUM 20 MG TABLET PO SCH (19:58)
[2020-04-08] MEDS: SODIUM BICARB 50MEQ 50ML VIAL IV PRN (19:59)
--- NOTE | 2020-04-08 20:00 | NUR ---
FAMILY UPDATED DAUGHTER, STANLEY RUTH CALLED REQUESTING PT STATUS UP-DATE. PT STATUS UP-SAMUEL GIVEN, QUESTIONS ASKED AND ANSWERED.
--- NOTE | 2020-04-08 20:15 | NUR ---
ASSESSMENT PT INTUBATED ETT 8/22CM; VENT SETTINGS:SIMV/40%/10/550 PEEP 5 PRESSURE SUPPORT 10. EPI/LASIX/NS INFUSING WITHOUT DIFFICULTY. SEE VITAL SIGNS AND I/O. PT DOES NOT FOLLOWS COMMANDS, PT RESTLESS/AGITATED AT TIMES AND AND CALM AT OTHERS, ASSESSMENT COMPLETED, SEE FLOW SHEET.
--- NOTE | 2020-04-08 22:00 | NUR ---
FAMILY UPDATED DAUGHTER, STANLEY RUTH CALLED REQUESTING PT STATUS UP-DATE. PT STATUS UP-SAMUEL GIVEN, QUESTIONS ASKED AND ANSWERED. PHONE HELD TO PT'S EAR AND PT'S DAUGHTER AND SPOKE TO PT
[2020-04-08 22:55] LABS: ABG HCO3 25.1 mmol/L (21.0-28.0); ABG OXYGEN SATURATION 97.6 % (95.0-99.0); ABG PCO2 38 mmHg (35-48)
[2020-04-09] VITALS (24 sets, daily range): BP systolic 140–208; BP diastolic 46–78
[2020-04-09 00:52] LABS: ABG BASE EXCESS -0.2 mmol/L (-2.0-3.0); ABG HCO3 23.3 mmol/L (21.0-28.0); ABG OXYGEN SATURATION 97.7 % (95.0-99.0); ABG PCO2 34 mmHg (35-48)
[2020-04-09] MEDS ORDERED: SODIUM CHLORIDE 0.9% 1000ML 0 ML IV ONE (00:55)
[2020-04-09 01:04] LABS: ABG BASE EXCESS 0.6 mmol/L (-2.0-3.0); ABG HCO3 24.7 mmol/L (21.0-28.0); ABG OXYGEN SATURATION 97.6 % (95.0-99.0); ABG PCO2 38 mmHg (35-48)
[2020-04-09] MEDS: FUROSEMIDE 100 MG in SODIUM CHLORIDE 0.9% 100 ML IV SCH ×3 (01:23→21:33)
[2020-04-09] MEDS: SODIUM CHLORIDE 0.9% 500ML 500 ML IV SCH (01:24)
[2020-04-09 03:44] LABS: BASOPHILS % (AUTO) 0.1 % (0.0-5.0); EOSINOPHILS % (AUTO) 1.9 % (0.0-8.0); HEMATOCRIT 26.8 % (42-54); LYMPHOCYTES % (AUTO) 7.7 % (21.0-51.0); MEAN CORPUSCULAR HGB CONC 32.8 g/dL (32.0-36.0); MEAN CORPUSCULAR VOLUME 91.5 fL (79-99); MONOCYTES % (AUTO) 12.4 % (3.0-13.0); NEUTROPHILS % (AUTO) 77.4 % (40.0-77.0); NUCLEATED RED BLOOD CELLS 0.4 % (0.0-0.19); PLATELET COUNT (AUTO) 64 K/uL (130-400); RED BLOOD CELL COUNT(AUTO) 2.93 MIL/uL (4.50-6.20); RED CELL DISTRIBUTION WIDTH 17.6 % (11.0-15.5); WHITE BLOOD COUNT (AUTO) 9.5 K/uL (4.8-10.8)
[2020-04-09 03:57] LABS: INR 1.35 (0.85-1.15); PARTIAL THROMBOPLASTIN TIME 29.6 SEC (26.3-35.5); PROTHROMBIN TIME 14.4 SEC (9.6-11.6)
[2020-04-09 04:03] LABS: ALBUMIN 2.6 g/dL (3.5-5.0); BILIRUBIN,TOTAL 1.1 mg/dL (0.2-1.0); CREATININE 3.4 mg/dL (0.5-1.5); MAGNESIUM 2.6 mg/dL (1.80-2.40); PHOSPHORUS 7.4 mg/dL (2.5-4.9); POTASSIUM 4.2 mmol/L (3.5-5.1); TOTAL PROTEIN, SERUM 5.1 g/dL (6.0-8.3)
[2020-04-09 04:31] LABS: ABG BASE EXCESS -0.7 mmol/L (-2.0-3.0); ABG HCO3 22.9 mmol/L (21.0-28.0); ABG OXYGEN SATURATION 97.8 % (95.0-99.0); ABG PCO2 34 mmHg (35-48)
[2020-04-09] MEDS: CALCIUM GLUCONATE 1 GM in SODIUM CHLORIDE 0.9% 50 ML IV PRN ×5 (04:58→23:24)
--- NOTE | 2020-04-09 05:00 | NUR ---
DR ROSIE VELEZ MADE AWARE OF ABG, BUN, CREAT, AST , URINE OUTPUT, CO/CI, SEE ORDERS
[2020-04-09] MEDS: NITROGLYCERIN 1GM/1 INCH PACKET TD SCH (05:07)
[2020-04-09 06:25] LABS: ABG BASE EXCESS -0.6 mmol/L (-2.0-3.0); ABG HCO3 23.1 mmol/L (21.0-28.0); ABG OXYGEN SATURATION 96.4 % (95.0-99.0); ABG PCO2 35 mmHg (35-48)
--- NOTE | 2020-04-09 07:00 | NUR ---
BEDSIDE REPORT BEDSIDE REPORT GIVEN TO ABIOLA DAUGHERTY
--- NOTE | 2020-04-09 07:20 | NUR ---
DR. VELEZ IN TO SEE PT. PLAN OF CARE DISCUSSED. NEW ORDERS RECEIVED AND NOTED.
--- NOTE | 2020-04-09 08:00 | NUR ---
PT PLACED ON CPAP ORDERED. PT AWAKE ABLE TO FOLLOW COMMANDS, ABLE TO MOVE ALL EXTREMITIES EXCEPT FOR LEFT LEG. AWARE.
[2020-04-09] MEDS: FAMOTIDINE/PF 20 MG/2 ML VIAL IV SCH ×2 (08:11→21:14)
[2020-04-09] MEDS: ASPIRIN 325 MG TABLET PO SCH (08:11)
[2020-04-09] MEDS: ASPIRIN 325MG EC TAB 325 MG TABLET.DR PO SCH (08:11)
[2020-04-09 08:45] LABS: ABG BASE EXCESS 0.8 mmol/L (-2.0-3.0); ABG HCO3 23.8 mmol/L (21.0-28.0); ABG OXYGEN SATURATION 94.7 % (95.0-99.0); ABG PCO2 32 mmHg (35-48)
--- NOTE | 2020-04-09 09:00 | NUR ---
PT TOLERATED WEANING FROM VENT. UNABLE TO PERFORM NIP OR VITAL CAPACITY. DR. VELEZ CALLED AND NOTIFIED. NOTIFIED OF ABG RESULTS. NEW ORDER TO EXTUBATE PT. PT EXTUBATED AND PLACED ON BIPAP ORDERED. TOLERATING WELL.
[2020-04-09] MEDS: NITROGLYCERIN 0.2 MG/HR PATCH TD SCH (09:29)
[2020-04-09 10:12] LABS: ABG OXYGEN SATURATION 97.2 % (95.0-99.0); ABG PCO2 37 mmHg (35-48)
[2020-04-09 12:57] LABS: % IRON SATURATION 21.4 % (30-44)
[2020-04-09 16:07] LABS: ABG BASE EXCESS 0.2 mmol/L (-2.0-3.0); ABG OXYGEN SATURATION 93.2 % (95.0-99.0); ABG PCO2 35 mmHg (35-48)
--- NOTE | 2020-04-09 19:30 | NUR ---
ASSESSMENT PT RESTING IN BED, O2 4L NC. LASIX GTT AND NS INFUSING WITHOUT DIFFICULTY. SEE VITAL SIGNS AND I/O. PT DOES NOT FOLLOWS COMMANDS, PT RESTLESS/AGITATED AT TIMES AND AND CALM AT OTHERS, ASSESSMENT COMPLETED, SEE FLOW SHEET.
[2020-04-09] MEDS: ATORVASTATIN CALCIUM 20 MG TABLET PO SCH (21:00)
[2020-04-09 23:18] LABS: ABG BASE EXCESS -0.1 mmol/L (-2.0-3.0); ABG HCO3 23.6 mmol/L (21.0-28.0); ABG OXYGEN SATURATION 96.5 % (95.0-99.0); ABG PCO2 34 mmHg (35-48)
[2020-04-10] VITALS (24 sets, daily range): BP systolic 129–190; BP diastolic 48–80
[2020-04-10] MEDS: SODIUM CHLORIDE 0.9% 500ML 500 ML IV SCH (03:08)
[2020-04-10 05:11] LABS: ABG BASE EXCESS -1.1 mmol/L (-2.0-3.0); ABG HCO3 22.2 mmol/L (21.0-28.0); ABG OXYGEN SATURATION 94.5 % (95.0-99.0); ABG PCO2 32 mmHg (35-48)
[2020-04-10 06:00] LABS: BASOPHILS % (AUTO) 0.2 % (0.0-5.0); EOSINOPHILS % (AUTO) 3.4 % (0.0-8.0); HEMATOCRIT 26.3 % (42-54); LYMPHOCYTES % (AUTO) 10.7 % (21.0-51.0); MEAN CORPUSCULAR HEMOGLOBIN 30.2 pg (27.0-33.0); MEAN CORPUSCULAR HGB CONC 32.3 g/dL (32.0-36.0); MEAN CORPUSCULAR VOLUME 93.6 fL (79-99); MONOCYTES % (AUTO) 11.2 % (3.0-13.0); NUCLEATED RED BLOOD CELLS 0.5 % (0.0-0.19); PLATELET COUNT (AUTO) 48 K/uL (130-400); RED BLOOD CELL COUNT(AUTO) 2.81 MIL/uL (4.50-6.20); RED CELL DISTRIBUTION WIDTH 17.3 % (11.0-15.5); WHITE BLOOD COUNT (AUTO) 5.6 K/uL (4.8-10.8)
[2020-04-10 06:03] LABS: INR 1.26 (0.85-1.15); PARTIAL THROMBOPLASTIN TIME 29.4 SEC (26.3-35.5); PROTHROMBIN TIME 13.5 SEC (9.6-11.6)
[2020-04-10 06:15] LABS: ALBUMIN 2.4 g/dL (3.5-5.0); CREATININE 4.5 mg/dL (0.5-1.5); MAGNESIUM 2.7 mg/dL (1.80-2.40); POTASSIUM 3.9 mmol/L (3.5-5.1); TOTAL PROTEIN, SERUM 5.2 g/dL (6.0-8.3)
[2020-04-10 06:29] LABS: B-TYPE NATRIURETIC PEPTIDE 4020 pg/mL (0-100)
[2020-04-10] MEDS: ASPIRIN 325MG EC TAB 325 MG TABLET.DR PO SCH (09:00)
[2020-04-10] MEDS: FUROSEMIDE 100 MG in SODIUM CHLORIDE 0.9% 100 ML IV SCH (09:10)
[2020-04-10] MEDS: FAMOTIDINE/PF 20 MG/2 ML VIAL IV SCH ×2 (09:10→21:17)
[2020-04-10] MEDS: NITROGLYCERIN 0.2 MG/HR PATCH TD SCH (09:11)
[2020-04-10] MEDS: ASPIRIN 325 MG TABLET PO SCH (09:11)
[2020-04-10] MEDS ORDERED: NACL IV SCH (10:00)
[2020-04-10] MEDS ORDERED: DEXTROSE IV SCH (10:00)
[2020-04-10] MEDS ORDERED: POTASSIUM CHLORIDE IV SCH (10:00)
[2020-04-10] MEDS ORDERED: COMPOUND IV MISC 1 EACH IVSOLN MISC PRN (15:30)
[2020-04-10] MEDS: HYDRALAZINE HCL 20 MG/ML VIAL IV PRN (16:07)
[2020-04-10] MEDS: DEXTROSE 5%-WATER 1,000 ML IV SCH (16:07)
[2020-04-10] MEDS: ATORVASTATIN CALCIUM 20 MG TABLET PO SCH (21:00)
[2020-04-11] VITALS (20 sets, daily range): BP systolic 114–173; BP diastolic 52–89
[2020-04-11] MEDS: HYDRALAZINE HCL 20 MG/ML VIAL IV PRN (00:27)
[2020-04-11 03:48] LABS: ABG BASE EXCESS -0.4 mmol/L (-2.0-3.0); ABG HCO3 21.6 mmol/L (21.0-28.0); ABG OXYGEN SATURATION 95.4 % (95.0-99.0); ABG PCO2 29 mmHg (35-48)
[2020-04-11 03:52] LABS: BASOPHILS % (AUTO) 0.2 % (0.0-5.0); EOSINOPHILS % (AUTO) 0.1 % (0.0-8.0); HEMATOCRIT 27.1 % (42-54); LYMPHOCYTES % (AUTO) 10.7 % (21.0-51.0); MEAN CORPUSCULAR HEMOGLOBIN 30.3 pg (27.0-33.0); MEAN CORPUSCULAR HGB CONC 32.5 g/dL (32.0-36.0); MEAN CORPUSCULAR VOLUME 93.4 fL (79-99); MONOCYTES % (AUTO) 9.1 % (3.0-13.0); NUCLEATED RED BLOOD CELLS 1.2 % (0.0-0.19); PLATELET COUNT (AUTO) 65 K/uL (130-400); RED CELL DISTRIBUTION WIDTH 17.1 % (11.0-15.5); WHITE BLOOD COUNT (AUTO) 9.8 K/uL (4.8-10.8)
[2020-04-11] MEDS: DEXTROSE 5%-WATER 1,000 ML IV SCH ×2 (04:02→15:06)
[2020-04-11 04:05] LABS: B-TYPE NATRIURETIC PEPTIDE 3570 pg/mL (0-100)
[2020-04-11 04:06] LABS: ALBUMIN 2.5 g/dL (3.5-5.0); BILIRUBIN,TOTAL 0.8 mg/dL (0.2-1.0); CREATININE 5.2 mg/dL (0.5-1.5); MAGNESIUM 3.1 mg/dL (1.80-2.40); PHOSPHORUS 5.7 mg/dL (2.5-4.9); POTASSIUM 3.5 mmol/L (3.5-5.1); TOTAL PROTEIN, SERUM 5.3 g/dL (6.0-8.3)
[2020-04-11] MEDS ORDERED: DIGOXIN 250 MCG/ML 2ML AMP IV SCH ×2 (08:51→16:00)
--- NOTE | 2020-04-11 09:00 | NUR ---
DYSPHAGIA EVAL COMPLETED. +S/S OF ASPIRATION WITH LIQUID TEXTURES. RECOMMEND NPO WITH PILLS ONLY (CRUSHED). RECOMMENDATIONS: 1. MBSS FOR TOMORROW 04/12/2020 2. GOALS TO BE DETERMINED AFTER MBSS. Addendum: 04/11/20 at 1231 by RONALDO GODWIN, [facility] Amended: Links added.
[2020-04-11] MEDS: FAMOTIDINE/PF 20 MG/2 ML VIAL IV SCH ×2 (09:13→21:38)
[2020-04-11] MEDS: IRON SUCROSE COMPLEX 100 MG in SODIUM CHLORIDE 0.9% 50 ML IV SCH (09:13)
[2020-04-11] MEDS: NITROGLYCERIN 0.2 MG/HR PATCH TD SCH (09:13)
[2020-04-11] MEDS: METOPROLOL TARTRATE 25 MG TAB PO SCH ×2 (09:34→21:38)
[2020-04-11] MEDS: ASPIRIN 325 MG TABLET PO SCH (09:35)
[2020-04-11] MEDS: DIGOXIN 250 MCG/ML 2ML AMP IV SCH ×2 (15:05→21:39)
[2020-04-11] MEDS: ATORVASTATIN CALCIUM 20 MG TABLET PO SCH (21:38)
--- NOTE | 2020-04-11 22:33 | NUR ---
ATTEMPTED TO ADMINISTER MEDICATIONS, PATIENT SPIT MEDICATIONS OUT AND WAS POCKETING. DID NOT CONTINUE TO GIVE MEDICATIONS. PATIENT HAS MBSS SCHEDULED FOR TOMORROW.
--- NOTE | 2020-04-11 22:42 | NUR ---
FAMILY UPDATED. PATIENT'S DAUGHTER PORFIRIO UPDATED ON PATIENT'S STATUS.
[2020-04-12 04:11] VITALS: BP 158/54
[2020-04-12 04:52] LABS: MEAN CORPUSCULAR HEMOGLOBIN 30.5 pg (27.0-33.0); MEAN CORPUSCULAR HGB CONC 30.8 g/dL (32.0-36.0); MEAN CORPUSCULAR VOLUME 99.3 fL (79-99); RED BLOOD CELL COUNT(AUTO) 4.03 MIL/uL (4.50-6.20); RED CELL DISTRIBUTION WIDTH 17.6 % (11.0-15.5); WHITE BLOOD COUNT (AUTO) 8.4 K/uL (4.8-10.8)
[2020-04-12 05:11] LABS: ALBUMIN 2.4 g/dL (3.5-5.0); BILIRUBIN,TOTAL 0.8 mg/dL (0.2-1.0); CREATININE 5.3 mg/dL (0.5-1.5); DIGOXIN 2.05 ng/mL (0.50-2.00); POTASSIUM 3.4 mmol/L (3.5-5.1); TOTAL PROTEIN, SERUM 5.5 g/dL (6.0-8.3)
[2020-04-12] MEDS: DEXTROSE 5%-WATER 1,000 ML IV SCH ×2 (06:03→21:26)
[2020-04-12] MEDS: IRON SUCROSE COMPLEX 100 MG in SODIUM CHLORIDE 0.9% 50 ML IV SCH ×2 (09:00→17:11)
[2020-04-12] MEDS: METOPROLOL TARTRATE 25 MG TAB PO SCH ×2 (09:00→21:00)
[2020-04-12] MEDS: ASPIRIN 325 MG TABLET PO SCH (09:00)
[2020-04-12] MEDS: NITROGLYCERIN 0.2 MG/HR PATCH TD SCH ×2 (09:00→17:12)
[2020-04-12 09:12] VITALS: BP 165/68
[2020-04-12] MEDS: FAMOTIDINE/PF 20 MG/2 ML VIAL IV SCH ×2 (09:41→21:26)
--- NOTE | 2020-04-12 09:55 | NUR ---
PT. REFUSING TO GET SUCTIONED BUT ABLE TO PERFORM SOME SUCTIONING. PT. WOULD BITE ON YANKAUER AND GRAB TUBING AND NOT LET GO. THICK GREEN PHLEGM SUCTIONED. ALSO REMOVED APPLE SAUCE WITH CRUSHED MEDS DUE TO PT. KEEP IN MOUTHING AND NOT SWALLOWING.
--- NOTE | 2020-04-12 11:00 | NUR ---
DYSPHAGIA RE-EVAL. +S/S OF ASPIRATION. RECOMMEND NPO, LONG-TERM ALTERNATE MEANS OF NUTRITION/HYDRATION. MBSS ORDER CANCELED DUE TO POOR RESULTS IN BEDSIDE DYSPHAGIA EVALUATION (ABSENT SWALLOW WITH REMOVAL OF FOOD FROM ORAL CAVITY). Addendum: 04/12/20 at 1400 by RONALDO GODWIN, SPT ST Amended: Links added.
--- NOTE | 2020-04-12 11:12 | NUR ---
RECEIVED CALL FROM PT.'S DAUGHTER, HARJEET MANCUSO, UPDATED ON PT.'S STATUS AND QUESTIONS ANSWERED. ALSO INFORMED PT. REFUSING TO GET SUCTIONED BUT ABLE TO PERFORM SOME SUCTIONING EVEN WHEN PT. WOULD BITE ON YANKAUER AND GRAB TUBING AND NOT LET GO; DAUGHTER VERBALIZED UNDERSTANDING.
--- NOTE | 2020-04-12 11:19 | NUR ---
patient is very confused this AM, not able to follow CABG precautions, grabbing and pulling the side-rails of the bed and trying to get out of the bed.Notified DAT Garcia regarding patient's confusion. Addendum: 04/12/20 at 1122 by DAVE MICHEL, PT PT Amended: Links added.
[2020-04-12 11:31] VITALS: BP 101/60
[2020-04-12] MEDS ORDERED: DIGOXIN 250 MCG/ML 2ML AMP IV SCH (16:00)
[2020-04-12 17:08] VITALS: BP 179/56
[2020-04-12] MEDS: HYDRALAZINE HCL 20 MG/ML VIAL IV PRN (17:14)
--- NOTE | 2020-04-12 17:45 | NUR ---
SUCTIONING PERFORMED WITH USE OF YANKAUER PERFORMED; PT. ONCE AGAIN BITING DOWN ON YANKAUER.
--- NOTE | 2020-04-12 18:00 | NUR ---
RECEIVED CALL FROM PT.'S DAUGHTER, HARJEET MANCUSO, ONCE AGAIN. UPDATED ON STATUS AND MADE AWARE RE:ORDER FOR GI CONSULT FOR PEG TUBE PLACEMENT RECEIVED; VERBALIZED UNDERSTANDING.
--- NOTE | 2020-04-12 20:00 | NUR ---
PATIENT RECEIVED IN BED, ALERT TO SELF ONLY. PATIENT IS CONFUSED AND DOES NOT FOLLOW COMMANDS. PO MEDICATIONS UNABLE TO BE ADMINISTERED D/T PATIENT BEING NPO D/T FAILING BEDSIDE SWALLOW STUDY. PER REPORT, DOBBHOFF UNABLE TO BE INSERTED D/T PT BEING CONFUSED AND COOPERATING WITH POC. PATIENT IS NOTED TO HAVE COARSE/WET VOCAL QUALITY AND DOES NOT ALLOW FOR ORAL SUCTIONING. PLAN FOR GI CONSULT TOMORROW IN AM FOR POSSIBLE PEG. PATIENT CONT WITH D5W AT 75ML/HR. PT IS POD#6 CABG x4, STERNAL DRESSING D/I. PATIENT IS ON TELEMETRY WITH SR 86. ALL SR UP, HOB ELEVATED. WILL CONT TO MONITOR CLOSELY. Addendum: 04/12/20 at 2240 by ROGER PASTRANA RN RN Amended: Links added.
--- NOTE | 2020-04-12 20:30 | NUR ---
RECEIVED A CALL FROM PATIENT'S DAUGHTER, HARJEET MANCUSO. I INFORMED HER THERE IS NO CHANGE TO PATIENT STATUS FROM LAST CALL SHE MADE AND SPOKE WITH VICTORIA DAUGHERTY.
[2020-04-12 20:51] VITALS: BP 158/62
[2020-04-12] MEDS: ATORVASTATIN CALCIUM 20 MG TABLET PO SCH (21:00)
--- NOTE | 2020-04-12 23:50 | NUR ---
ABLE TO PERFORM ORAL SUCTION ON PATIENT, NOTED TO HAVE COPIOUS AMOUNT OF PHLEGM. AFTER 2 TRIES, PATIENT PUSHED AWAY MY HAND, TURNED HIS FACE AWAY AND SAID "YA NO". WILL CONT TO MONITOR CLOSELY AND REATTEMPT AT ORAL CARE/SUCTION.
[2020-04-13 00:33] VITALS: BP 164/69
--- NOTE | 2020-04-13 00:51 | NUR ---
ORAL SUCTIONING PERFORMED WITH BITE GUARD. COPIOUS AMOUNT OF THICK PHLEGM SUCTIONED. PT TOLERATED POORLY. WILL CONT TO MONITOR CLOSELY.
--- NOTE | 2020-04-13 06:30 | NUR ---
WHILE WORKING WITH PATIENT, WAS NOTIFIED BY SUPERVISOR BACKFILLING, PATIENT WITH ACC JUNCTIONAL RHYTHM AT 0436. PATIENT O2 SATURATION DECREASING TO 80s, RAPID RESPONSE CALLED, 0439. PATIENT WAS NOTED TO HAVE AGONAL BREATHING, CODE BLUE INITIATED. REFER TO CARDIO PULMONARY ARREST RECORD. PATIENT AT 0507. FAMILY WAS NOTIFIED OF CODE BLUE STATUS AT 0454. DR. HANCOCK AND MARCEL CAMARGO POT ANNEALER MADE AWARE OF EVENTS. FAMILY NOTIFIED PATIENT AT 0508. TANISHA CALLED AT 0616.
[2020-04-15 09:14] LABS: SRA HIGH DOSE HEPARIN <1 % (0-20); SRA, LOW DOSE HEPARIN <1 % (0-20)
== END 2020-04-13 05:07 | disposition expired | DRG 215 ==
LOC: DAH 06:17 → DAHIP 06:18 → PAH.CVR 15:02 → DAHIP 04-07 18:56 → 4CH 04-11 18:57
PROVIDERS: ADMIT Internal Medicine; ATTEND Internal Medicine
PROC: 021209W Bypass Coronary Artery, Three Arteries from Aorta with Autologous Venous Tissue, Open Approach (ICD-10-PCS; 2020-04-06)
PROC: 06BQ4ZZ Excision of Left Saphenous Vein, Percutaneous Endoscopic Approach (ICD-10-PCS; 2020-04-06)
PROC: 06BP4ZZ Excision of Right Saphenous Vein, Percutaneous Endoscopic Approach (ICD-10-PCS; 2020-04-06)
PROC: B44GZZZ Ultrasonography of Left Lower Extremity Arteries (ICD-10-PCS; 2020-04-06)
PROC: 5A1945Z Respiratory Ventilation, 24-96 Consecutive Hours (ICD-10-PCS; 2020-04-06)
PROC: 0BH17EZ Insertion of Endotracheal Airway into Trachea, Via Natural or Artificial Opening (ICD-10-PCS; 2020-04-06)
PROC: 30233R1 Transfusion of Nonautologous Platelets into Peripheral Vein, Percutaneous Approach (ICD-10-PCS; 2020-04-06)
PROC: 30233N1 Transfusion of Nonautologous Red Blood Cells into Peripheral Vein, Percutaneous Approach (ICD-10-PCS; 2020-04-06)
PROC: 4A023N7 Measurement of Cardiac Sampling and Pressure, Left Heart, Percutaneous Approach (ICD-10-PCS; 2020-04-06)
PROC: B2111ZZ Fluoroscopy of Multiple Coronary Arteries using Low Osmolar Contrast (ICD-10-PCS; 2020-04-06)
PROC: B2151ZZ Fluoroscopy of Left Heart using Low Osmolar Contrast (ICD-10-PCS; 2020-04-06)
PROC: 02HA3RZ Insertion of Short-term External Heart Assist System into Heart, Percutaneous Approach (ICD-10-PCS; principal; 2020-04-06 11:20)
PROC: 5A0221D Assistance with Cardiac Output using Impeller Pump, Continuous (ICD-10-PCS; 2020-04-06 11:20)
PROC: 02100Z9 Bypass Coronary Artery, One Artery from Left Internal Mammary, Open Approach (ICD-10-PCS; 2020-04-06 11:20)
PROC: 02PA3RZ Removal of Short-term External Heart Assist System from Heart, Percutaneous Approach (ICD-10-PCS; 2020-04-07)
PROC: 04QL0ZZ Repair Left Femoral Artery, Open Approach (ICD-10-PCS; 2020-04-07)
PROC: 04QK0ZZ Repair Right Femoral Artery, Open Approach (ICD-10-PCS; 2020-04-07)
PROC: 5A12012 Performance of Cardiac Output, Single, Manual (ICD-10-PCS; 2020-04-13)
DX: I25.119 Atherosclerotic heart disease of native coronary artery with unspecified angina pectoris (principal); J96.90 Respiratory failure, unspecified, unspecified whether with hypoxia or hypercapnia; N18.6 End stage renal disease; I50.21 Acute systolic (congestive) heart failure; E87.0 Hyperosmolality and hypernatremia; I13.2 Hypertensive heart and chronic kidney disease with heart failure and with stage 5 chronic kidney disease, or end stage renal disease; N17.9 Acute kidney failure, unspecified; D69.6 Thrombocytopenia, unspecified; E11.22 Type 2 diabetes mellitus with diabetic chronic kidney disease; E11.65 Type 2 diabetes mellitus with hyperglycemia; E78.00 Pure hypercholesterolemia, unspecified; E78.5 Hyperlipidemia, unspecified; R57.0 Cardiogenic shock; E86.0 Dehydration; F02.80 Dementia in other diseases classified elsewhere, unspecified severity, without behavioral disturbance, psychotic disturbance, mood disturbance, and anxiety; G30.9 Alzheimer's disease, unspecified; E87.70 Fluid overload, unspecified; I25.5 Ischemic cardiomyopathy; I34.0 Nonrheumatic mitral (valve) insufficiency; I48.91 Unspecified atrial fibrillation; J98.4 Other disorders of lung; K21.9 Gastro-esophageal reflux disease without esophagitis; R13.10 Dysphagia, unspecified; R79.1 Abnormal coagulation profile; Z79.82 Long term (current) use of aspirin; Z79.899 Other long term (current) drug therapy; Z83.3 Family history of diabetes mellitus; Z81.1 Family history of alcohol abuse and dependence; Z82.49 Family history of ischemic heart disease and other diseases of the circulatory system
CPT/HCPCS: 33990; 36415; 36600; 70450; 71045; 76770; 80048; 80053; 80061; 80162; 81001; 81003; 82330; 82435; 82550; 82803; 82947; 82948; 83036; 83540; 83550; 83605; 83735; 83874; 83880; 84100; 84132; 84295; 84300; 84484; 85018; 85025; 85027; 85347; 85378; 85384; 85520; 85610; 85730; 86022; 86850; 86900; 86901; 86923; 87088; 92610; 92950; 93005; 93308; 93458; 93925; 94002; 94003; 94660; 97039; 99156; 99157; A4606; A7048; C1757; C1894; C8924; G0378; J0171; J0360; J0610; J0690; J1160; J1644; J1756; J1815; J1940; J2001; J2175; J2250; J2440; J2704; J2720; J3010; J3475; J3480; J3490; J7030; J7040; J7042; J7050; J7060; J7070; J7120; P9016; P9034; P9045; Q9967